=== PATIENT | female | born 1970 | race African-American/Black ===

== ENCOUNTER 2019-12-05 15:41 | Emergency (ER) | payer OTHER ==
[~2019-12-05] VITALS: Ht 170.2 cm; Wt 70.3 kg
[2019-12-05] MEDS ORDERED: ZYRTEC10 MG ORAL (15:56)
[2019-12-05] MEDS ORDERED: FLUTICASONE PRO16 G1 NASAL (15:56)
--- NOTE | 2019-12-05 15:58 | NUR ---
ED Nurse Note: pt ambulated to ed c/o exposure to mold while moving furnitures; c/o headache, runny nose and ithcing eyes and SOB. attempted to relieve symptoms with Zyrtec and Fluticasone nasal spray
[2019-12-05 15:59] VITALS: BP 152/84
[2019-12-05] MEDS: Albuterol/Ipratropium 3ml neb HHN SCH ×2 (16:26→16:27)
--- NOTE | 2019-12-05 16:38 | Emergency Room Report ---
History of Present Illness General Chief Complaint: Allergies Source: Patient Present Illness HPI 49-year-old female with history of asthma and allergies here complaining of shortness of breath times few hours after cleaning the house earlier today. Patient reports that she has been struggling with mold exposure in her apartment for the past few years, [employer] averaging nose and wanted evidence. She has already had necessary blood work done by primary care in this regard. Patient is here for symptom relief. Reports that she was cleaning and moving furniture as she saw online and she started coughing any shortness of breath. Sitting comfortably with stable vital signs. Denies any headache and dizziness at this time. Denies recent travel, fever and chills. Denies tobacco smoke, drug use, alcohol intake. Allergies: Coded Allergies: No Known Allergies (Unverified , 12/05/19) Patient History Past Medical History: see triage record Past Surgical History: none Pertinent Family History: none Now: No Immunizations: UTD Reviewed Nursing Documentation: PMH: Agreed; PSxH: Agreed Nursing Documentation-PMH Past Medical History: No Stated History Hx Asthma: Yes Review of Systems All Other Systems: negative except mentioned in HPI Physical Exam Vital Signs Date Time Temp Pulse Resp B/P (MAP) Pulse Ox O2 Delivery O2 Flow Rate FiO2 12/05/19 15:51 98.4 108 16 152/84 (106) 99 Room Air 12/05/19 16:33 21 Sp02 EP Interpretation: reviewed, normal General Appearance: no apparent distress, alert, GCS 15, non-toxic Head: normocephalic, atraumatic Eyes: bilateral eye normal inspection, bilateral eye PERRL ENT: hearing grossly normal, normal pharynx, no angioedema, normal voice Neck: full range of motion, supple/symm/no masses Respiratory: no rhonchi, no respiratory distress, no retraction, no accessory muscle use, wheezing Cardiovascular #1: regular rate, rhythm, no edema, no murmur Gastrointestinal: non tender, soft, no mass Rectal: deferred Genitourinary: no CVA tenderness Musculoskeletal: back normal, no calf tenderness Psychiatric: judgement/insight normal, memory normal, mood/affect normal, no suicidal/homicidal ideation Skin: no rash Lymphatic: no adenopathy Medical Decision Making PA Attestation All my diagnosis and treatment plans were reviewed ad discussed with my supervising physician Dr. Chavez Diagnostic Impression: Primary Impression: Acute asthma exacerbation ER Course 49-year-old female with history of asthma and allergies here complaining of shortness of breath times few hours after cleaning the house earlier today. Patient reports that she has been struggling with mold exposure in her apartment for the past few years, [employer] averaging nose and wanted evidence. She has already had necessary blood work done by primary care in this regard. Patient is here for symptom relief. Reports that she was cleaning and moving furniture as she saw online and she started coughing any shortness of breath. Sitting comfortably with stable vital signs. Denies any headache and dizziness at this time. Denies recent travel, fever and chills. Denies tobacco smoke, drug use, alcohol intake. Ddx considered but are not limited to: bronchitis, PNA, URI viral, bacterial bronchitis asthma exacerbation Vital signs: are WNL, pt. is afebrile H&PE are most consistent with: Asthma exacerbation ORDERS: Chest x-ray, albuterol, prednisone ED INTERVENTIONS: Prednisone, 3 treatments of albuterol ipratropium nebulizer treatment DISCHARGE: At this time pt. is stable for d/c to home. Will provide printed patient care instructions, and any necessary prescriptions. Care plan and follow up instructions have been discussed with the patient prior to discharge. Patient take medication as directed, follow-up with primary care provider, worsening symptoms return to the emergency room Chest X-Ray Diagnostic Results Chest X-Ray Diagnostic Results : Chest X-Ray Ordered: Yes # of Views/Limited/Complete: 1 View Indication: Shortness of Breath EP Interpretation: Yes ANGELA Xray: Interpretation reviewed, by supervising MD, and agrees with findings. Interpretation: no consolidation, no effusion, no pneumothorax Impression: No acute disease Electronically Signed by: Tania Grace PA-C Last Vital Signs Date Time Temp Pulse Resp B/P (MAP) Pulse Ox O2 Delivery O2 Flow Rate FiO2 12/05/19 16:33 94 16 100 Room Air 21 90 16 99 12/05/19 15:59 98.4 152/84 Disposition: HOME, SELF-CARE Condition: Stable Scripts Prednisone* (PREDNISONE*) 20 Mg Tablet 40 MG ORAL DAILY for 5 Days, #10 TAB Prov: Tania Alexander 12/05/19 Albuterol Sulfate (VENTOLIN HFA) 18 Gm Hfa.aer.ad 2 PUFFS INH EVERY 6 HOURS, #18 GM 0 Refills Prov: Tania Alexandre 12/05/19 Referrals: [facility],REFERRING (PCP) Patient Instructions: Asthma, Adult, Allergies Additional Instructions: Take medication as directed, follow-up with primary care doctor, if worsening symptoms return to the emergency room Tania Alexandre Dec 05, 2019 16:38
[2019-12-05] MEDS ORDERED: VENTOLIN HFA18 GM INH (16:39)
[2019-12-05] MEDS ORDERED: PREDNISONE20 MG ORAL (16:39)
--- NOTE | 2019-12-05 16:50 | NUR ---
ER DISCHARGE NOTE: Patient is cleared to be discharged per ERMD, pt is aox4, on room air, with stable vital signs. pt was given dc and prescription instructions, pt was able to verbalize understanding, pt id band removed. pt is able to ambulate with steady gait. pt took all belongings. pt reports breathing better.
--- NOTE | 2019-12-05 16:50 | Diagnostic Imaging Report ---
Indication: Dyspnea Comparison: None A single view chest radiograph was obtained. Findings: Cardiomediastinal appearance is within normal limits for age. The lungs are clear. Pulmonary vascularity is appropriate. The diaphragmatic contour is smooth and costophrenic angles are sharp. No pleural effusions are identified. The bones are unremarkable. Impression: No acute findings
[2019-12-05 16:51] VITALS: BP 146/79
== END 2019-12-05 16:50 | disposition home or self-care (01) ==
LOC: EMR 16:18
DX: J45.901 Unspecified asthma with (acute) exacerbation (principal)
CPT/HCPCS: 71045; J7512; Z7502; 99284; J7620